=== PATIENT | female | born 1930 | race Caucasian/White ===

== ENCOUNTER 2017-08-24 09:02 | Emergency (ER) | payer OTHER ==
[~2017-08-24] VITALS: Ht 149.9 cm; Wt 62.0 kg
[~2017-08-24 09:02] MED LIST: AMBI10TA PO; AMIT10TA13; DIAZ5 PO; HYDR10TA16 PO; LUMIGAN; PREM0.622; PRIL40CA PO
[2017-08-24 09:06] VITALS: BP 203/86; PULSE 85; RESP 18; TEMP 97.6; O2SAT 96
[2017-08-24] MEDS ORDERED: SULF500T3 PO (09:29)
[2017-08-24] MEDS ORDERED: FOLI800T PO (09:29)
[2017-08-24] MEDS ORDERED: LATA0.002 EACH EYE (09:29)
[2017-08-24] MEDS ORDERED: HYDR-3516 PO (09:29)
[2017-08-24] MEDS ORDERED: [UNRECOGNIZED DRUG - OTHER] PO (09:29)
[2017-08-24] MEDS ORDERED: OMEP40CA2 PO (09:29)
[2017-08-24] MEDS ORDERED: VITA10002 PO (09:29)
[2017-08-24] MEDS ORDERED: CALC1TAB87 PO (09:29)
[2017-08-24] MEDS ORDERED: DESM1TAB15 PO (09:29)
[2017-08-24] MEDS ORDERED: VITA500T83 PO (09:29)
[2017-08-24] MEDS ORDERED: VITA80003 PO (09:29)
[2017-08-24] MEDS ORDERED: METH2.5T PO (09:29)
--- NOTE | 2017-08-24 09:42 | PD ---
HPI Chief Complaint: Fall Time Seen by Provider: 09:12 Travel History International Travel<30 days: No Contact w/Intl Traveler<30days: No Traveled to known affect area: No History of Present Illness HPI This 86-year-old female says she fell this morning. She was taking out the garbage and she fell forward and landed on the garbage can. The corner of the can hit her sternum. She hit her nose and had bleeding from her nose. She did not have a loss of consciousness and she scraped both of her knees. She has been able to walk since then but her left knee has been hurting. 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.) Cardiovascular Problems: Yes (HTN, CHOL) Diabetes: No Diminished Hearing: No Glaucoma: Yes Gout: Yes Hepatitis: No Hiatal Hernia: Yes Hypertension: No Medical other: Yes (ARTHRITIS) Respiratory: No Immunizations Current: Yes (FLU SHOT 2005; PNEUMONIA SHOT 2004.) Thyroid Disease: No Tetanus Vaccination: > 5 Years Influenza Vaccination: No Past Surgical History Abdominal Surgery: Yes (HYSTERECTOMY, CHOLECYSTECTOMY, APPENDECTOMY) Appendectomy: Yes Cardiac Surgery: No Ear Surgery: No Eye Surgery: No Genitourinary Surgery: No Gynecologic Surgery: No Hysterectomy: Yes (1971) Oral Surgery: Yes (TONSILLECTOMY) Pacemaker: No Thoracic Surgery: No Tonsillectomy: Yes Other Surgery: Yes (ADHESIONS) Social History Alcohol Use: No Tobacco Use: No Substance Use: No Allergies-Medications (Allergen,Severity, Reaction): Coded Allergies: Sulfa (Sulfonamide Antibiotics) (Unverified Allergy, Unknown, 08/24/17) celecoxib (Unverified Allergy, Unknown, 08/24/17) propoxyphene (Unverified Allergy, Unknown, 08/24/17) trazodone (Unverified Allergy, Unknown, 08/24/17) Reported Meds & Prescriptions Reported Meds & Active Scripts Active Reported Vitamin C ER (Ascorbic Acid) 500 Mg Claudia 1,000 Mg PO DAILY Vitamin B-12 (Cyanocobalamin) 1,000 Mcg Tab 1,000 Mcg PO DAILY Vitamin A 8,000 Unit Capsule PO DAILY Calcium 600 with Vitamin D (Calcium Carbonate-Cholecalciferol) 600-400 mg-Unit Tab 1 Tab PO DAILY Folic Acid 0.8 Mg Tab 1 Gm PO DAILY Omeprazole 40 Mg Cap 40 Mg PO DAILY Latanoprost Opth Drops (Latanoprost) 0.005% Drops 1 Drop EACH EYE HS Refrigerate until opened. Sulfasalazine 500 Mg Tab 1,000 Mg PO DAILY Desmopressin (Desmopressin Acetate) 0.1 Mg Tab 0.2 Mg PO DAILY Methotrexate 2.5 Mg Tab 10 Mg PO Q7D [Alieve Pm] PO HS Hydrocodone-Acetamin 5-325 mg (Hydrocodone/Acetaminophen) 5 Mg-325 Mg Tablet PO DAILY Review of Systems General / Constitutional: No: Fever, Chills Eyes: No: Diploplia, Blurred Vision HENT: No: Headaches, Vertigo Cardiovascular: Positive: Chest Pain or Discomfort, No: Palpitations Respiratory: No: Cough, Shortness of Breath Gastrointestinal: No: Nausea Genitourinary: No: Urgency, Frequency Musculoskeletal: Positive: Myalgias Skin: No Rash Neurologic: No: Weakness Psychiatric: No: Anxiety Physical Exam Narrative GENERAL: Elderly female SKIN: Focused skin assessment warm/dry. HEAD: Atraumatic. Normocephalic. EYES: Pupils equal and round. No scleral icterus. No injection or drainage. There is a 1 cm laceration on the bridge of the nose with edges well opposed ENT: No nasal bleeding or discharge. Mucous membranes pink and moist. NECK: Trachea midline. No JVD. CARDIOVASCULAR: Regular rate and rhythm. No murmur appreciated. There is tenderness over the lower sternal area RESPIRATORY: No accessory muscle use. Clear to auscultation. Breath sounds equal bilaterally. GASTROINTESTINAL: Abdomen soft, non-tender, nondistended. Hepatic and splenic margins not palpable. MUSCULOSKELETAL: No obvious deformities. No clubbing. No cyanosis. No edema. There are abrasions of both knees. She complains of some pain with palpation of area there is no obvious instability NEUROLOGICAL: Awake and alert. No obvious cranial nerve deficits. Motor grossly within normal limits. Normal speech. PSYCHIATRIC: Appropriate mood and affect; insight and judgment normal. Data Data Last Documented VS Vital Signs Date Time Temp Pulse Resp B/P (MAP) Pulse Ox O2 Delivery O2 Flow Rate FiO2 08/24/17 09:30 Room Air 08/24/17 09:06 97.6 85 18 203/86 (125) 96 Orders Orders Chest, Pa & Lat (08/24/17 09:21) Ct Brain W/O Iv Contrast(Rout) (08/24/17 09:21) Knee, Complete (4vws) (08/24/17 09:21) Tetanus/Diphtheria Tox Adult (Tetanus/Di (08/24/17 10:45) Ibuprofen (Motrin) (08/24/17 11:00) MDM Medical Decision Making Medical Screen Exam Complete: Yes Emergency Medical Condition: Yes Medical Record Reviewed: Yes Differential Diagnosis Differential includes contusion, fracture, subdural hematoma Narrative Course CT brain is negative. Chest x-ray PA and lateral is negative as is x-ray of the knee. Impression is multiple contusions and abrasions. Laceration of the nose has been glued, tetanus updated Diagnosis Primary Impression: Multiple contusions Disposition: 01 DISCHARGE HOME Condition: Stable Abdirizak Hogue MD Aug 24, 2017 09:42
--- NOTE | 2017-08-24 10:02 | RADRPT ---
EXAM DATE/TIME: 08/24/2017 09:49 [facility] COMPARISON: No previous studies available for comparison. INDICATIONS : Fell this morning and hit head. RADIATION DOSE: 62.69 CTDIvol (mGy) ; Patient motion MEDICAL HISTORY : Hypertension. Hypercholesterolemia. Hernia, hiatal.Left renal cancer. SURGICAL HISTORY : Tonsillectomy. Hysterectomy.Cholecystectomy.Left kidney removed. Appendectomy. Left hip replacement. ENCOUNTER: Initial ACUITY: 1 day PAIN SCALE: 4/10 LOCATION: cranial TECHNIQUE: Multiple contiguous axial images were obtained of the head. Using automated exposure control and adj ustment of the mA and/or kV according to patient size, radiation dose was kept as low as reasonably a chievable to obtain optimal diagnostic quality images. DICOM format image data is available electro nically for review and comparison. FINDINGS: CEREBRUM: The ventricles are normal for age. No evidence of midline shift, mass lesion, hemorrhage or acute in farction. No extra-axial fluid collections are seen. POSTERIOR FOSSA: The cerebellum and brainstem are intact. The 4th ventricle is midline. The cerebellopontine angle i s unremarkable. EXTRACRANIAL: The visualized portion of the orbits is intact. There is air-fluid level in the right maxillary sinus and mucoperiosteal thickening and opacification of left maxillary and ethmoid air cells. SKULL: The calvaria is intact. No evidence of skull fracture. CONCLUSION: Intracranially negative. Intact calvarium. Findings consistent with sinus disease maxillary and ethmo ids. Bennie Martinez MD on August 24, 2017 at 9:58 Board Certified Radiologist. This report was verified electronically.
--- NOTE | 2017-08-24 10:07 | RADRPT ---
EXAM DATE/TIME: 08/24/2017 09:34 [facility] COMPARISON: No previous studies available for comparison. INDICATIONS : Mid chest pain, fall this morning and hit chest on garbage can. MEDICAL HISTORY : None. SURGICAL HISTORY : None. ENCOUNTER: Initial ACUITY: 1 day PAIN SCORE: 10/10 LOCATION: Bilateral middle chest FINDINGS: The examination demonstrates mild, chronic interstitial changes. The heart is at the upper limits of normal in size. Visualized bony structures are grossly intact. There are advanced degenerative change s in the shoulders bilaterally. CONCLUSION: 1. No pneumothorax identified. No definite rib fracture evident. Landon Marquis MD on August 24, 2017 at 9:53 Board Certified Radiologist. This report was verified electronically.
--- NOTE | 2017-08-24 10:12 | RADRPT ---
EXAM DATE/TIME: 08/24/2017 09:34 [facility] COMPARISON: No previous studies available for comparison. INDICATIONS : Fall, left knee pain. MEDICAL HISTORY : None. SURGICAL HISTORY : None. ENCOUNTER: Initial ACUITY: 1 day PAIN SCORE: 4/10 LOCATION: Left knee FINDINGS: Four view examination of the left knee demonstrates no evidence of fracture or dislocation. Bony min eralization is normal. The articular surfaces are intact. 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 The suprapatellar so ft tissues have a normal configuration. CONCLUSION: No acute bony abnormality. 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 This report was verified electronically.
--- NOTE | 2017-08-24 10:23 | PD ---
Physical Exam Time Seen by Provider: 10:00 Data Data Last Documented VS Vital Signs Date Time Temp Pulse Resp B/P (MAP) Pulse Ox O2 Delivery O2 Flow Rate FiO2 08/24/17 09:30 Room Air 08/24/17 09:06 97.6 85 18 203/86 (125) 96 Orders Orders Chest, Pa & Lat (08/24/17 09:21) Ct Brain W/O Iv Contrast(Rout) (08/24/17 09:21) Knee, Complete (4vws) (08/24/17 09:21) MDM Medical Record Reviewed: Yes Supervised Visit with JONAH: No Narrative Course This patient presents with a laceration to the bridge of the nose which I was asked to repair with Dermabond. She verbally consented. Procedures Procedure Narrative LACERATION LOCATION: Bridge of nose LENGTH: 0.5 cm NUMBER OF STITCHES/CRUZ: Dermabond REPAIR: The wound was copiously irrigated and explored without evidence of foreign body, tendon injury or neurovascular injury. The wound was closed using Dermabond. This was a single layer repair. A sterile dressing was applied. The patient was advised to keep the dressing clean and dry. Patient tolerated the procedure well. Jack Shahid Aug 24, 2017 10:23
[2017-08-24] MEDS ORDERED: TETANUS/DIPHTHERIA TOXOID ADULT 0.5 ML VIAL IM ONE (10:45)
[2017-08-24] MEDS ORDERED: IBUPROFEN 400 MG TAB PO ONE (11:00)
[2017-08-24 11:07] VITALS: BP 183/71
== END 2017-08-24 11:23 | disposition home or self-care (01) ==
LOC: PHED 09:02
DX: S01.21XA Laceration without foreign body of nose, initial encounter (principal); S80.212A Abrasion, left knee, initial encounter; S80.211A Abrasion, right knee, initial encounter; T14.8XXA Other injury of unspecified body region, initial encounter; I10 Essential (primary) hypertension; E78.00 Pure hypercholesterolemia, unspecified; W01.198A Fall on same level from slipping, tripping and stumbling with subsequent striking against other object, initial encounter; Y93.H9 Activity, other involving exterior property and land maintenance, building and construction; Z23 Encounter for immunization
CPT/HCPCS: 12011; 70450; 71046; 73564; 90471; 90714